=== PATIENT | female | born 1955 | race Caucasian/White ===

== ENCOUNTER 2017-02-16 12:40 | Observation (INO) | payer BC ==
[~2017-02-16] VITALS: Ht 160 cm; Wt 69.5 kg
[~2017-02-16 12:40] MED LIST: AMLODIPINE BESYL5 MG PO; FLEXERIL10 MG PO; PRAVASTATIN SOD20 MG PO
[2017-02-16 13:27] LABS: HEMATOCRIT 44.6 % (36.0-46.0); MCH 29.2 PG (29.0-34.0); MCHC 33.9 G/DL (30.0-36.0); MCV 86.1 FL (83-99); MEAN PLAT.VOLUME 9.8 uM^3 (9.5-12.4); PLATELET COUNT 268 K/uL (156-360); RBC DIS.WIDTH-CV 13.8 % (11.8-14.6); RBC DIS.WIDTH-SD 43.8 % (39-53); RED BLOOD COUNT 5.18 M/uL (3.80-5.20); WHITE BLOOD COUNT 8.4 K/uL (4.1-10.2)
[2017-02-16 13:32] LABS: PROTHROMBIN TIME 10.6 SEC (10.2-12.9)
[2017-02-16 13:34] LABS: PTT 29.7 SEC (25-37)
[2017-02-16 13:36] LABS: CHLORIDE 106 mEq/L (99-109); POTASSIUM 3.5 mEq/L (3.7-5.4); SODIUM 139 mEq/L (136-147)
[2017-02-16 13:38] LABS: GLUCOSE 137 mg/dL (70-99)
[2017-02-16 13:40] LABS: ANION GAP 10 MEQ/L (2-14); TOTAL BILIRUBIN 0.7 mg/dL (0.0-1.0)
[2017-02-16 13:42] LABS: ALKALINE PHOSPHATASE 105 IU/L (3-129); GFR ESTIMATE (CALCULATED) > 59 mL/min/
[2017-02-16 13:43] LABS: UREA NITROGEN (BUN) 9 mg/dL (9-23)
[2017-02-16 13:45] LABS: LIPASE 22 U/L (1.0-51.0)
[2017-02-16 13:47] LABS: TROP-I INTERPRETATION NEGATIVE; TROPONIN-I < 0.01 ng/mL (0.0-0.30)
[2017-02-16 14:07] LABS: ADD MIUA? NO; BILIRUBIN NEGATIVE; BLOOD NEGATIVE; COLOR COLORLESS ((YELLOW)); GLUCOSE (STRIP) NEGATIVE; KETONES NEGATIVE; LEUKOCYTES NEGATIVE; NITRITE NEGATIVE; PROTEIN (STRIP) NEGATIVE; SPECIFIC GRAVITY 1.004 (1.000-1.030); UROBILINOGEN 0.2 MG/DL (0.2-1.0)
[2017-02-16] MEDS ORDERED: HYZAAR 50-121 TABLET PO (16:23)
[2017-02-16] MEDS ORDERED: CELEXA40 MG PO (16:27)
[2017-02-16 19:11] VITALS: BP 132/73
[2017-02-16 21:26] LABS: HDL CHOLESTEROL 56 MG/DL (Desirable>=50); LDL CHOLESTEROL 102 mg/dL (Desirable<100); NON-HDL CHOLESTEROL 121 mg/dL (Desirable<160); TOTAL CHOLESTEROL 177 mg/dL (Desirable<200); TRIGLYCERIDES 97 MG/DL (Normal: <150)
[2017-02-16 23:41] VITALS: BP 114/63
[2017-02-17 04:00] VITALS: BP 118/68
[2017-02-17 06:56] VITALS: BP 117/75
[2017-02-17 07:41] LABS: Estimated Average Glucose 120 mg/dL (70-123); HEMOGLOBIN A1c (GLYCOHEMOGLOB) 5.8 % HGB (Below 5.7)
[2017-02-17] MEDS ORDERED: ASPIR-LOW81 MG PO (07:56)
== END 2017-02-17 08:52 | disposition home or self-care (01) ==
LOC: EME 12:40 → EDOF 16:29 → ENRESERV 16:33 → EDOF 17:08 → ENRESERV 17:08 → EDOF 17:08 → ENRESERV 17:57 → 5WEST 19:02
PROVIDERS: Nurse Practitioner Family
DX: G45.9 Transient cerebral ischemic attack, unspecified (principal); I10 Essential (primary) hypertension; G43.909 Migraine, unspecified, not intractable, without status migrainosus; F17.210 Nicotine dependence, cigarettes, uncomplicated; Z79.82 Long term (current) use of aspirin; E78.5 Hyperlipidemia, unspecified; Z82.49 Family history of ischemic heart disease and other diseases of the circulatory system; Z82.3 Family history of stroke
CPT/HCPCS: 70450; 70496; 70498; 70551; 71010; 80053; 80061; 81003; 83036; 83690; 84484; 85027; 85610; 85730; 99281; 99285; G0378; J2765; J7030

== ENCOUNTER 2017-07-06 06:51 | Day surgery (SDC) | payer BC ==
[~2017-07-06] VITALS: Ht 157.5 cm; Wt 68.6 kg
[~2017-07-06 06:51] MED LIST changes: +ASCORBIC ACID500 M3 PO; +ASPIR-LOW81 MG PO; +ATORVASTATIN CA40 MG PO; +CELEXA40 MG PO; +HYZAAR 50-121 TABLET PO; +LO-DOSE ASPIRIN81 M1 PO; +ZANTAC150 MG PO
[2017-07-06 07:38] LABS: BASOPHIL COUNT 0.1 K/uL (0-0.1); EOSINOPHIL (%) 2.2 % (0-5); EOSINOPHIL COUNT 0.2 K/uL (0-0.3); HEMATOCRIT 43.3 % (36.0-46.0); IMMATURE GRANULOCYTE (%) 0.2 % (0.0-0.7); INSTRUMENT ABS NEUTROPHIL CT 4.6 K/uL; MCH 29.7 PG (29.0-34.0); MCHC 33.9 G/DL (30.0-36.0); MCV 87.5 FL (83-99); MONOCYTE (%) 6.4 % (3-12); MONOCYTE COUNT 0.5 K/uL (0-0.8); NEUTROPHIL (%) 54.6 % (45-76); NEUTROPHIL COUNT 4.6 K/uL (1.8-6.4); PLATELET COUNT 278 K/uL (156-360); RBC DIS.WIDTH-CV 13.8 % (11.8-14.6); RBC DIS.WIDTH-SD 44.1 % (39-53); RED BLOOD COUNT 4.95 M/uL (3.80-5.20); WHITE BLOOD COUNT 8.5 K/uL (4.1-10.2)
[2017-07-06 07:39] LABS: ADD MIUA? YES; BILIRUBIN NEGATIVE; BLOOD NEGATIVE; COLOR AMBER ((YELLOW)); GLUCOSE (STRIP) NEGATIVE; KETONES NEGATIVE; LEUKOCYTES NEGATIVE; NITRITE NEGATIVE; PROTEIN (STRIP) NEGATIVE; SPECIFIC GRAVITY 1.021 (1.000-1.030); UROBILINOGEN 0.2 MG/DL (0.2-1.0)
[2017-07-06 07:40] VITALS: BP 113/76
[2017-07-06 08:02] LABS: RED BLOOD CELLS RARE /HPF (0-5)
[2017-07-06 08:03] LABS: BACTERIA 2+ /HPF; EPITHELIAL CELLS 2+ /HPF; MUCUS TRACE /LPF; UCUL ADDED? YES; WHITE BLOOD CELLS NONE SEEN /HPF (0-5)
[2017-07-06 08:04] LABS: AMORPHOUS URATES CRYSTALS 2+; CASTS NONE SEEN /LPF; CRYSTALS PRESENT
[2017-07-06] MEDS ORDERED: IBUPROFEN800 MG PO (11:59)
[2017-07-06] MEDS ORDERED: PERCOCET 5/31 TABLET PO (11:59)
[2017-07-06 13:39] VITALS: BP 124/84
[2017-07-06 14:45] VITALS: BP 119/59
== END 2017-07-06 15:03 | disposition home or self-care (01) ==
LOC: SDC 06:51
PROVIDERS: Obstetrics & Gynecology
DX: N81.11 Cystocele, midline (principal); I10 Essential (primary) hypertension; N83.209 Unspecified ovarian cyst, unspecified side; K21.9 Gastro-esophageal reflux disease without esophagitis; Z86.73 Personal history of transient ischemic attack (TIA), and cerebral infarction without residual deficits; Z79.82 Long term (current) use of aspirin; Z87.891 Personal history of nicotine dependence
CPT/HCPCS: 81003; 85025; 87086; J0690; J1100; J1170; J1885; J2250; J2405; J2710; J3010; Q0175